=== PATIENT | male | born 1990 | race Caucasian/White ===

== ENCOUNTER 2018-10-24 07:48 | Emergency (ER) | payer SELFPAY ==
[2018-10-24] MEDS ORDERED: Albuterol/Ipratropium 3.0-0.5 MG/3 ML Neb Soln NEB ONE (09:06)
[2018-10-24] MEDS ORDERED: predniSONE 20 MG Tab PO STA (09:10)
--- NOTE | 2018-10-24 09:16 | EDM.PDOC ---
ED HPI GENERAL MEDICAL PROBLEM - General Chief Complaint: Respiratory Problem Stated Complaint: ASTHMA COMPLAINT Time Seen by Provider: 10/24/18 08:46 Source of Information: Reports: Patient, RN Notes Reviewed History Limitations: Reports: No Limitations - History of Present Illness INITIAL COMMENTS - FREE TEXT/NARRATIVE: The patient states that he has had trouble breathing since last night. He reports shortness of breath, wheezing, and a dry cough. No recent fever. The patient states that he has had similar symptoms, about once year, that he attributes to asthma, although he has not been formally evaluated for asthma. The patient takes Advair twice a day, with his last dose this morning. He also has an albuterol MDI, but forgot it in [place]. He does not have a space chamber or a peak flow meter. The patient does not have a PCP. - Related Data Allergies Allergy/AdvReac Type Severity Reaction Status Date / Time No Known Allergies Allergy Verified 10/24/18 07:55 Home Meds: Home Meds Albuterol Sulfate [Proair Hfa] 2 puff INH ASDIRECTED PRN 10/24/18 [History] Albuterol [Ventolin HFA] 1 - 2 puff INH Q4H PRN #1 mdi 10/24/18 [Rx] Fluticasone/Salmeterol [Advair 250-50] 1 puff INH BID 10/24/18 [History] predniSONE [Prednisone] 2 tab PO QAM #6 tablet 10/24/18 [Rx] Past Medical History Respiratory History: Reports: Asthma (never tested, but likely) Gastrointestinal History: Reports: Pancreatitis (possible, alcohol-related) Musculoskeletal History: Reports: Fracture (C5) Psychiatric History: Reports: Anxiety (untreated), Depression (untreated) Endocrine/Metabolic History: Reports: Obesity/BMI 30+ - Past Surgical History HEENT Surgical History: Reports: Myringotomy w Tube(s) GI Surgical History: Reports: Appendectomy Neurological Surgical History: Reports: C-Spine (C4-C5 posterior fusion) Musculoskeletal Surgical History: Reports: Other (See Below) (Right ACL repair) Social & Family History - Tobacco Use Smoking Status *Q: Former Smoker (smoked briefly in High School) - Caffeine Use Caffeine Use: Reports: None - Alcohol Use Alcohol Use History: Yes Alcohol Use Frequency: Socially (Drank heavily until 2017) - Recreational Drug Use Recreational Drug Use: Yes Drug Use in Last 12 Months: Yes Recreational Drug Type: Reports: Cocaine (last snorted/injected 2016), Heroin, Marijuana/Hashish (last smoked 2016), Methamphetamine (last used May 2018), Oxycodone - Living Situation & Occupation Living situation: Reports: Single, with Family Occupation: Employed (Site watch) ED ROS GENERAL - Review of Systems Review Of Systems: ROS reveals no pertinent complaints other than HPI. ED EXAM, GENERAL - Physical Exam Exam: See Below Exam Limited By: No Limitations General Appearance: Alert, WD/WN, No Apparent Distress Eye Exam: Bilateral Eye: EOMI, Normal Inspection Ears: Normal External Exam, Hearing Grossly Normal Nose: Normal Inspection Throat/Mouth: Normal Inspection, Normal Lips, Normal Voice, No Airway Compromise Head: Atraumatic, Normocephalic Neck: Normal Inspection, Full Range of Motion, Other (Well-healed surgical scar to the lower posterior neck) Respiratory/Chest: No Respiratory Distress, No Accessory Muscle Use, Decreased Breath Sounds (mild), Wheezing (both inspiratory and expiratory), Prolonged Expiration (mild). No: Crackles, Rhonchi Cardiovascular: Normal Peripheral Pulses, Regular Rate, Rhythm, No Gallop, No JVD, No Murmur, No Rub Peripheral Pulses: 4+: Radial (L), Radial (R) GI/Abdominal: Normal Bowel Sounds, Soft, Non-Tender, No Organomegaly, No Distention, No Abnormal Bruit, No Mass, Other (Obese) (Male) Exam: Deferred Rectal (Males) Exam: Deferred Back Exam: Normal Inspection, Full Range of Motion, NT Extremities: Normal Inspection, Normal Range of Motion, No Pedal Edema, Normal Capillary Refill Neurological: Alert, Oriented, Normal Cognition, No Motor/Sensory Deficits Psychiatric: Normal Affect Skin Exam: Warm, Dry, Intact, Normal Color, No Rash Course - Vital Signs Last Recorded V/S: Last Vital Signs Temp 36.7 C 10/24/18 07:56 Pulse 81 10/24/18 07:56 Resp 12 10/24/18 07:56 BP 134/91 H 10/24/18 07:56 Pulse Ox 99 10/24/18 09:10 - Orders/Labs/Meds Meds: Medications Discontinued Medications Generic Name Dose Route Start Last Admin Trade Name Freq PRN Reason Stop Dose Admin Albuterol/Ipratropium 3 ml 10/24/18 09:06 10/24/18 09:23 Duoneb 3.0-0.5 Mg/3 Ml NEB 10/24/18 09:07 3 ml ONETIME ONE Administration Prednisone 60 mg 10/24/18 09:10 10/24/18 10:30 Prednisone PO 10/24/18 09:11 60 mg ONETIME STA Administration - Re-Assessments/Exams Free Text/Narrative Re-Assessment/Exam: 10/24/18 09:11 Although the patient has never undergone pulmonary function tests, he likely has asthma, and is likely suffering from an asthma exacerbation. As he has no history of fever or purulent sputum, neither a chest x-ray nor antibiotics are indicated. I will treat the patient with a DuoNeb, followed by albuterol as needed, along with 60 mg oral prednisone. I have asked the respiratory therapist to provide the patient with a peak flow meter and a space chamber. 10/24/18 10:20 Following 60 mg of oral prednisone and a DuoNeb, the patient states that his breathing now feels back to normal. On examination, his lungs are now entirely clear to auscultation bilaterally. I will discharge him home with a prescription for prednisone 40 mg every morning for 3 mornings, starting tomorrow, along with a replacement albuterol MDI. The patient was provided with a space chamber and a peak flow meter, and I explained to him their proper uses. Departure - Departure Time of Disposition: 10:21 Disposition: Home, Self-Care 01 Condition: Good Clinical Impression: Asthma exacerbation - Discharge Information *PRESCRIPTION DRUG MONITORING PROGRAM REVIEWED*: Not Applicable *COPY OF PRESCRIPTION DRUG MONITORING REPORT IN PATIENT RAMAN: Not Applicable Prescriptions: Albuterol [Ventolin HFA] 1 - 2 puff INH Q4H PRN #1 mdi PRN Reason: Wheezing predniSONE [Prednisone] 2 tab PO QAM #6 tablet Referrals: PCP,None [Primary Care Provider] - Forms: ED Department Discharge Additional Instructions: You were seen in the emergency room for shortness of breath with wheezing and a dry cough. Based on your history and physical examination, you were most likely suffering from an asthma exacerbation. Your symptoms resolved after receiving oral prednisone and a DuoNeb. You were given a space chamber and a peak flow meter in the ER. We recommend that you check your peak flow twice a week. If your peak flow drops into the yellow zone, even if you are feeling well, please contact your PCP for instructions, as this may indicate an impending asthma exacerbation. A prescription for prednisone and albuterol MDI have been sent to the [facility], located just south and [place] [address] from [facility]. Take 2 tablets (40 mg) of prednisone each morning, starting tomorrow morning, 10/25/2018, as prescribed. Finish the entire prescription. Take 1-2 puffs of albuterol, always using the space chamber, as needed for shortness of breath and wheezing, with or without a cough, provided your peak flow is not in the green zone. You may repeat as often as needed, however, if you require albuterol more often than every 4 hours, you need to be seen by a doctor. If any other problems, please do not hesitate to return to the ER.
== END 2018-10-24 11:01 | disposition home or self-care (01) ==
LOC: JD.ED 07:48
DX: J45.901 Unspecified asthma with (acute) exacerbation (principal); E66.9 Obesity, unspecified; Z96.22 Myringotomy tube(s) status; Z90.49 Acquired absence of other specified parts of digestive tract; Z87.891 Personal history of nicotine dependence
CPT/HCPCS: 94640; 99285; A9270; 99283; J7620-GY